=== PATIENT | male | born 1970 | race Caucasian/White ===

== ENCOUNTER 2024-07-01 16:44 | Observation (INO) ==
[2024-07-01 17:47] LABS: Basophils # (auto) 0.03 K/uL (0.00-0.20); Basophils % (auto) 0.3 %; Eosinophils # (auto) 0.05 K/uL (0.00-0.50); Eosinophils % (auto) 0.4 %; Hematocrit (blood only) 46.6 % (42.0-52.0); Hemoglobin 16.7 g/dl (14.0-18.0); Immature Granulocytes # (auto) 0.05 K/uL (0.01-0.20); Immature Granulocytes % (auto) 0.4 %; Lymphocytes # (auto) 1.42 K/uL (1.20-3.40); Lymphocytes % (auto) 12.2 %; Mean Corpuscular Hemoglobin 29.7 pg (25.0-34.0); Mean Corpuscular Hgb Conc 35.8 g/dL (32.0-36.0); Mean Corpuscular Volume 82.9 fL (80.0-100.0); Mean Platelet Volume 9.5 fL (9.4-12.4); Monocytes # (auto) 0.87 K/uL (0.11-0.59); Monocytes % (auto) 7.5 %; Neutrophils # (auto) 9.23 K/uL (1.40-6.50); Neutrophils % (auto) 79.2 %; Platelet Count 257 K/uL (130-400); RDW Coefficient of Variation 11.9 % (11.5-14.5); RDW Standard Deviation 36.1 fL (36.4-46.3); Red Blood Count 5.62 M/uL (4.70-6.10); White Blood Count 11.65 K/ul (4.8-10.8)
[2024-07-01 18:01] LABS: Appearance Urine Clear (Clear); Bilirubin Urine Negative (Negative); Blood Urine Negative (Negative); Color Urine Yellow; Glucose Urine UA Negative (Negative); Ketones Urine 1+ (Negative); Leukocyte Esterase Urine Negative (Negative); Nitrite Urine Negative (Negative); Protein Urine Negative (Negative); Specific Gravity Urine 1.028 (1.000-1.030); Urobilinogen Urine Negative (Negative); pH Urine 5.5 (4.5-7.5)
[2024-07-01 18:14] LABS: Albumin Globulin Ratio 1.4 (0.9-2); Albumin Level 4.7 gm/dl (3.4-5.0); BUN Creatinine Ratio 17.4 (10-20); Bilirubin,Total 0.7 mg/dl (0.2-1.0); Calcium 9.8 mg/dl (8.6-10.3); Creatinine Clr Calc Pharmacy 66.1 ml/min; Globulin 3.4 gm/dl (2.5-4.0); Potassium 4.2 mmol/L (3.5-5.1); Total Protein 8.1 gm/dl (6.0-8.3)
[2024-07-01] MEDS: SODIUM CHLORIDE 0.9% 1,000 ML IV ONE ×2 (18:22→18:54)
[2024-07-01] MEDS: ONDANSETRON INJ 2 MG/ML 2 ML VIAL IV STA (18:22)
[2024-07-01] MEDS: PANTOprazole 40 MG/10 ML SYR IV ONE (18:53)
[2024-07-01] MEDS: ACETAMINOPHEN 1,000 MG/100 ML VIAL IV STA (18:53)
--- NOTE | 2024-07-01 19:00 | Emergency Department Note ---
Impression & Plan Acute left flank pain, Calculus of distal left ureter, Hydronephrosis ED Provider Note HISTORY OF PRESENT ILLNESS: Patient is a 54-year-old male presenting with left upper quadrant and left flank pain. Patient reports that he has had a burning pain sensation in his left upper quadrant and left flank. He reports that when this pain comes on he gets diaphoretic and very nauseous and has episodes of vomiting. Reports that he has had multiple episodes of this pain over the last few months. He states that he had an episode in April 2024, and it lasted for about 2 weeks. He did not seek any medical treatment at that time. He states he had another episode earlier in the month that only lasted for a few days and then went away. He states that he takes 2 Advil, abysmal and a Gas-X and symptoms normally improved. He denies any diarrhea. Denies any history of abdominal surgeries. Denies any fevers. Denies noticing any rashes to the left flank area. He reports that pain is worse after he eats or drinks anything. He denies any history of peptic ulcer disease. He denies any notable fevers. Denies any dysuria or hematuria. Denies any chest pain or shortness of breath. ROS: as above PHYSICAL EXAM: Constitutional: Patient appears in no acute distress. HENT: Head: Normocephalic and atraumatic. Eyes: EOMI, PERRL Mouth/Throat: Mucous membranes moist. Neck: Trachea midline. Neck supple. Cardiovascular: RRR, No murmurs, rubs or gallops. Intact distal pulses. Pulmonary/Chest: No respiratory distress. Breath sounds clear and equal bilaterally. No wheezes or rales. Abdominal: Abdomen soft, no tenderness, rebound or guarding. No obvious rashes on left flank. Musculoskeletal: No edema, tenderness or deformity noted. Skin: Warm and dry. No rash, erythema, pallor or cyanosis Psychiatric: Appropriate mood and affect for situation. Neurological: Alert and keenly responsive. CN II-XII grossly intact, moving all extremities equally and fully. MDM: - Vitals signs showed hypertension. - History obtained via patient. History as above. - Chronic conditions affecting care: HTN - Differential diagnoses include, but are not limited to: peptic ulcer; ACS; UTI; pyelonephritis; ureteral stone; diverticulitis - Order placed for continuous cardiac monitoring. At this time, monitor showed rate of 72 bpm with normal sinus rhythm, per my interpretation. - External medical records reviewed. - Laboratory workup interpreted by myself showed leukocytosis (WBC 11.65); normal troponin; normal creatinine; stable electrolytes; normal lipase - Viral respiratory panel negative - Patient given 2L NS, 1g IV tylenol, 4 mg IV zofran and 40 mg IV protonix in ER. On reassessment, reports feeling slightly improved. - UA negative for infection, but noted ot have ketonuria. - CT abdomen/pelvis with IV contrast showed left hydronephrosis from a 6 x 12 mm calculus in the left ureteral pelvic junction. Normal appendix - Discussed patient's case with urologist, Dr. Herrera, at 20:30. Reports that ideally he would try to get the patient a shot of passage of the stone, but chance of passage is only about 20%. Recommends hydration and IV antibiotics, given patient's episodes of diaphoresis and possible subjective fevers. Reports if patient gets an 38.5 fever, would emergently stent. - Patient given 2g IV rocephin in ER. - Discussion was had with hospice case manager about patient's case and need for admission - Hospitalist, Dr. Gandhi, consulted for admission - [facility] for further evaluation and management. ASSESSMENT AND PLAN: Diagnosis: acute left flank pain; left ureteral stone; hydronephrosis Plan: admit Past Med/Surg History Problem List (Updated 07/01/24 @ 20:53 by Shelley Simpson MD) Hydronephrosis (Acute) Calculus of distal left ureter (Acute) Acute left flank pain (Acute) Forearm laceration (Acute) Work related injury (Acute) Social History Smoking Status: Never smoker Feels Safe at Home: Yes Allergies Allergies Allergy/AdvReac Type Severity Reaction Status Date / Time pollen extracts Allergy Intermediate CONGESTION Verified 07/01/24 20:16 Home Meds Home Medications Medication Instructions Recorded Confirmed lisinopril 20 mg tablet 20 mg PO DAILY #0 tabs 03/06/15 07/01/24 fluticasone furoate 100 1 inh inhalation DAILY PRN 07/01/24 07/01/24 mcg-vilanterol 25 mcg/dose Shortness Of Breath inhalation powder (Breo Ellipta) ibuprofen-diphenhydramine citrate 2 cap PO HS PRN Pain 07/01/24 07/01/24 200 mg-38 mg tablet (Advil PM) Results & Data (ED) Vital Signs Vital Signs - 24 hr 07/01/24 16:59 07/01/24 17:47 07/01/24 17:53 Temperature 36.2 C L Temperature Source Skin Pulse Rate 79 67 Pulse Rate [Right Finger] 69 Pulse Rhythm [Right Finger] Regular Pulse Strength [Right Finger] Normal Respiratory Rate 18 15 Respiratory Effort / Characteristics Non-Labored Respiratory Depth Normal Respiratory Pattern Regular Blood Pressure 149/106 H Blood Pressure [Right Arm] 163/100 H Blood Pressure Mean 120 Blood Pressure Mean [Right Arm] 121 Blood Pressure Position [Right Arm] Lying Pulse Oximetry 98 97 Oxygen Delivery Method Room Air Room Air Sepsis Recent Fever Within 48 Hours No Sepsis New/Unexplained Change in Mental Status No Sepsis Action Taken by Nursing No Action Required 07/01/24 19:19 07/01/24 21:06 Temperature Temperature Source Pulse Rate Pulse Rate [Right Finger] 72 64 Pulse Rhythm [Right Finger] Regular Regular Pulse Strength [Right Finger] Normal Normal Respiratory Rate 21 14 Respiratory Effort / Characteristics Non-Labored Non-Labored Respiratory Depth Normal Normal Respiratory Pattern Regular Regular Blood Pressure Blood Pressure [Right Arm] 154/94 H Blood Pressure Mean Blood Pressure Mean [Right Arm] 114 Blood Pressure Position [Right Arm] Lying Pulse Oximetry 97 Oxygen Delivery Method Room Air Sepsis Recent Fever Within 48 Hours Sepsis New/Unexplained Change in Mental Status Sepsis Action Taken by Nursing Laboratory Data 07/01/24 17:15 07/01/24 17:15 Lab Results 07/01/24 07/01/24 07/01/24 Range/Units 17:15 17:46 18:25 WBC 11.65 H (4.8-10.8) K/ul RBC 5.62 (4.70-6.10) M/uL Hgb 16.7 (14.0-18.0) g/dl Hct 46.6 (42.0-52.0) % MCV 82.9 (80.0-100.0) fL MCH 29.7 (25.0-34.0) pg MCHC 35.8 (32.0-36.0) g/dL RDW Std Deviation 36.1 L (36.4-46.3) fL RDW Coeff of Janice 11.9 (11.5-14.5) % Plt Count 257 (130-400) K/uL MPV 9.5 (9.4-12.4) fL Immature Gran % (Auto) 0.4 % Neut % (Auto) 79.2 % Lymph % (Auto) 12.2 % [place] % (Auto) 7.5 % Eos % (Auto) 0.4 % Baso % (Auto) 0.3 % Neut # (Auto) 9.23 H (1.40-6.50) K/uL Lymph # (Auto) 1.42 (1.20-3.40) K/uL [place] # (Auto) 0.87 H (0.11-0.59) K/uL Eos # (Auto) 0.05 (0.00-0.50) K/uL Baso # (Auto) 0.03 (0.00-0.20) K/uL Immature Gran # (Auto) 0.05 (0.01-0.20) K/uL Sodium 137 (136-145) mmol/L Potassium 4.2 (3.5-5.1) mmol/L Chloride 103 (98-107) mmol/L Carbon Dioxide 26 (21-32) mmol/L Anion Gap 8 (3-11) BUN 24 H (6-23) mg/dl Creatinine 1.38 (0.6-1.4) mg/dl Est Cr Clr Drug Dosing 66.1 ml/min eGFR 60.39 BUN/Creatinine Ratio 17.4 (10-20) Glucose 153 H (70-99(Fasting)) mg/dl Calcium 9.8 (8.6-10.3) mg/dl Total Bilirubin 0.7 (0.2-1.0) mg/dl AST 21 (13-39) U/L ALT 29 (7-52) U/L Alkaline Phosphatase 82 (34-104) U/L Troponin I High Sens (0-20) pg/ml Total Protein 8.1 (6.0-8.3) gm/dl Albumin 4.7 (3.4-5.0) gm/dl Globulin 3.4 (2.5-4.0) gm/dl Albumin/Globulin Ratio 1.4 (0.9-2) Lipase 20 (11-82) U/L Urine Color Yellow Urine Appearance Clear (Clear) Urine pH 5.5 (4.5-7.5) Ur Specific [place] 1.028 (1.000-1.030) Urine Protein Negative (Negative) Urine Glucose (UA) Negative (Negative) Urine Ketones 1+ H (Negative) Urine Blood Negative (Negative) Urine Nitrite Negative (Negative) Urine Bilirubin Negative (Negative) Urine Urobilinogen Negative (Negative) Ur Leukocyte Esterase Negative (Negative) Adenovirus (PCR) Not Detected (NotDetected) B. pertussis DNA (PCR) Not Detected (NotDetected) B.parapertussis DNA PCR Not Detected (NotDetected) C. pneumoniae DNA (PCR) Not Detected (NotDetected) Coronavirus OC43 (PCR) Not Detected (NotDetected) Coronavirus HKU1 (PCR) Not Detected (NotDetected) Coronavirus 229E (PCR) Not Detected (NotDetected) SARS-CoV-2 (PCR) Not Detected (NotDetected) Coronavirus NL63 (PCR) Not Detected (NotDetected) Human Metapneumovir PCR Not Detected (NotDetected) Influenza Type A (PCR) Not Detected (NotDetected) Influenza Type B (PCR) Not Detected (NotDetected) M. pneumoniae (PCR) Not Detected (NotDetected) Parainfluenza 1 (PCR) Not Detected (NotDetected) Parainfluenza 2 (PCR) Not Detected (NotDetected) Parainfluenza 3 (PCR) Not Detected (NotDetected) Parainfluenza 4 (PCR) Not Detected (NotDetected) RSV (PCR) Not Detected (NotDetected) Entero/Rhino (PCR) Not Detected (NotDetected) 07/01/24 Range/Units 19:16 WBC (4.8-10.8) K/ul RBC (4.70-6.10) M/uL Hgb (14.0-18.0) g/dl Hct (42.0-52.0) % MCV (80.0-100.0) fL MCH (25.0-34.0) pg MCHC (32.0-36.0) g/dL RDW Std Deviation (36.4-46.3) fL RDW Coeff of Janice (11.5-14.5) % Plt Count (130-400) K/uL MPV (9.4-12.4) fL Immature Gran % (Auto) % Neut % (Auto) % Lymph % (Auto) % [place] % (Auto) % Eos % (Auto) % Baso % (Auto) % Neut # (Auto) (1.40-6.50) K/uL Lymph # (Auto) (1.20-3.40) K/uL [place] # (Auto) (0.11-0.59) K/uL Eos # (Auto) (0.00-0.50) K/uL Baso # (Auto) (0.00-0.20) K/uL Immature Gran # (Auto) (0.01-0.20) K/uL Sodium (136-145) mmol/L Potassium (3.5-5.1) mmol/L Chloride (98-107) mmol/L Carbon Dioxide (21-32) mmol/L Anion Gap (3-11) BUN (6-23) mg/dl Creatinine (0.6-1.4) mg/dl Est Cr Clr Drug Dosing ml/min eGFR BUN/Creatinine Ratio (10-20) Glucose (70-99(Fasting)) mg/dl Calcium (8.6-10.3) mg/dl Total Bilirubin (0.2-1.0) mg/dl AST (13-39) U/L ALT (7-52) U/L Alkaline Phosphatase (34-104) U/L Troponin I High Sens 4.4 (0-20) pg/ml Total Protein (6.0-8.3) gm/dl Albumin (3.4-5.0) gm/dl Globulin (2.5-4.0) gm/dl Albumin/Globulin Ratio (0.9-2) Lipase (11-82) U/L Urine Color Urine Appearance (Clear) Urine pH (4.5-7.5) Ur Specific [place] (1.000-1.030) Urine Protein (Negative) Urine Glucose (UA) (Negative) Urine Ketones (Negative) Urine Blood (Negative) Urine Nitrite (Negative) Urine Bilirubin (Negative) Urine Urobilinogen (Negative) Ur Leukocyte Esterase (Negative) Adenovirus (PCR) (NotDetected) B. pertussis DNA (PCR) (NotDetected) B.parapertussis DNA PCR (NotDetected) C. pneumoniae DNA (PCR) (NotDetected) Coronavirus OC43 (PCR) (NotDetected) Coronavirus HKU1 (PCR) (NotDetected) Coronavirus 229E (PCR) (NotDetected) SARS-CoV-2 (PCR) (NotDetected) Coronavirus NL63 (PCR) (NotDetected) Human Metapneumovir PCR (NotDetected) Influenza Type A (PCR) (NotDetected) Influenza Type B (PCR) (NotDetected) M. pneumoniae (PCR) (NotDetected) Parainfluenza 1 (PCR) (NotDetected) Parainfluenza 2 (PCR) (NotDetected) Parainfluenza 3 (PCR) (NotDetected) Parainfluenza 4 (PCR) (NotDetected) RSV (PCR) (NotDetected) Entero/Rhino (PCR) (NotDetected) Administered Medications Discontinued Medications Sodium Chloride (Nss) 1,000 mls @ 999 mls/hr IV .Q1H1M ONE Stop: 07/01/24 19:04 Last Infusion: 07/01/24 20:19 Dose: Infused Documented By: Admin: 07/01/24 18:22 Dose: 999 mls/hr Documented By: NAM Sodium Chloride (Nss) 1,000 mls @ 999 mls/hr IV .Q1H1M ONE Stop: 07/01/24 19:45 Last Infusion: 07/01/24 20:43 Dose: Infused Documented By: Admin: 07/01/24 18:54 Dose: 999 mls/hr Documented By: NAM Pantoprazole Sodium (Protonix) 40 mg in 10 mls @ 5 mls/min IV NOW ONE Stop: 07/01/24 18:46 Last Admin: 07/01/24 18:53 Dose: 5 mls/min Documented By: NAM Acetaminophen (Ofirmev) 1,000 mg in 100 mls @ 400 mls/hr IV NOW STA Stop: 07/01/24 18:59 Last Infusion: 07/01/24 20:19 Dose: Infused Documented By: Admin: 07/01/24 18:53 Dose: 400 mls/hr Documented By: NAM Ceftriaxone Sodium (Rocephin) 2,000 mg in 50 mls @ 100 mls/hr IV NOW STA Stop: 07/01/24 21:01 Last Admin: 07/01/24 20:44 Dose: 100 mls/hr Documented By: NAM Ioversol (Optiray 320 100ml) 90 ml IV ONCE ONE Stop: 07/01/24 19:08 Last Admin: 07/01/24 19:08 Dose: 90 ml Documented By: SILVESTRE Ondansetron HCl (Ondansetron Inj 2 Mg/Ml 2 Ml Vial) 4 mg IV NOW STA Stop: 07/01/24 18:05 Last Admin: 07/01/24 18:22 Dose: 4 mg Documented By: NAM Imaging Data Radiologist's Impression: Abdomen/Pelvis CT 07/01/24 18:04 Exam(s): CT ABDOMEN + PELVIS With Contrast IV Amt: 90 ml optiray 320 EXAM: CT Abdomen and Pelvis With Intravenous Contrast CLINICAL HISTORY: Reason for exam: L flank pain. TECHNIQUE: Axial computed tomography images of the abdomen and pelvis with intravenous contrast. CTDI is 25 mGy and DLP is 1277 mGy-cm. Automated exposure control was utilized for the study. A dose lowering technique was utilized adhering to the principles of ALARA. CONTRAST: Patient received 90 ml optiray 320 of IV contrast COMPARISON: No relevant prior studies available. FINDINGS: Lung bases: Unremarkable. No mass. No consolidation. ABDOMEN: Liver: Unremarkable. No mass. Gallbladder and bile ducts: Previous cholecystectomy. No biliary duct dilation or choledocholithiasis. Pancreas: Unremarkable. No mass. No ductal dilation. Spleen: Unremarkable. No splenomegaly. Adrenals: Unremarkable. No mass. Kidneys and ureters: There is mild left hydronephrosis and a delayed left nephrogram due to a 6 x 12 mm calculus in the left ureteral pelvic junction. Nonobstructive 3 mm calyceal calculus in the lower pole left kidney. There is a 2.5 cm simple cyst in the upper pole the left kidney. No follow-up is required. Stomach and bowel: See below. PELVIS: Appendix: The appendix is normal. Bowel loops are nondilated. There is mild diverticulosis of the left colon without evidence of acute diverticulitis. No acute inflammatory changes are seen involving the bowel. Bladder: Unremarkable. No mass. Reproductive: Unremarkable as visualized. ABDOMEN and PELVIS: Intraperitoneal space: Unremarkable. No free air. No significant fluid collection. Bones/joints: Mild degenerative changes in the lumbar spine. No acute fracture or subluxation is seen. Soft tissues: Unremarkable. Vasculature: Unremarkable. No abdominal aortic aneurysm. Lymph nodes: Unremarkable. No enlarged lymph nodes. IMPRESSION: 1. There is mild left hydronephrosis and a delayed left nephrogram due to a 6 x 12 mm calculus in the left ureteral pelvic junction. 2. The appendix is normal. Bowel loops are nondilated. There is mild diverticulosis of the left colon without evidence of acute diverticulitis. No acute inflammatory changes are seen involving the bowel. Electronically signed by: Carlos Melo MD 07/01/24 20:10 PM Discharge Plan Visit Data Chief Complaint: Abdominal Pain Stated Complaint: LEFT SIDE PAIN, RIB, NAUSEA, DIZZY ED Provider: Shelley Simpson Discharge Problem: Acute left flank pain, Calculus of distal left ureter, Hydronephrosis Forms Stand Alone Forms: [facility] [employer] Prescriptions Prescriptions: No Action lisinopril 20 mg Tablet 20 mg PO DAILY Qty: 0 Advil PM 200-38 mg Tablet 2 cap PO HS PRN (Reason: Pain) Rx Instructions: repeats in 4 hours if needed fluticasone furoate-vilanterol [Breo Ellipta] 100-25 mcg/dose blister with device 1 inh INHALATION DAILY PRN (Reason: Shortness Of Breath) Referrals Referrals: PCP,NO [Primary Care Provider] -
[2024-07-01] MEDS: OPTIRAY 320 100ml IV ONE (19:08)
[2024-07-01 19:21] LABS: Adenovirus PCR Not Detected (NotDetected); Bordetella parapertussis PCR Not Detected (NotDetected); Bordetella pertussis PCR Not Detected (NotDetected); Chlamydia pneumoniae PCR Not Detected (NotDetected); Coronavirus 229E PCR Not Detected (NotDetected); Coronavirus CoV-2 (COVID19)PCR Not Detected (NotDetected); Coronavirus HKU1 PCR Not Detected (NotDetected); Coronavirus NL63 PCR Not Detected (NotDetected); Coronavirus OC43PCR Not Detected (NotDetected); Human Metapneumovirus PCR Not Detected (NotDetected); Influenza A PCR Not Detected (NotDetected); Influenza B PCR Not Detected (NotDetected); Mycoplasma pneumoniae PCR Not Detected (NotDetected); Parainfluenza Virus 1 PCR Not Detected (NotDetected); Parainfluenza Virus 2 PCR Not Detected (NotDetected); Parainfluenza Virus 3 PCR Not Detected (NotDetected); Parainfluenza Virus 4 PCR Not Detected (NotDetected); Respiratory Syncytial VirusPCR Not Detected (NotDetected); Rhinovirus/Enterovirus PCR Not Detected (NotDetected)
--- NOTE | 2024-07-01 20:11 | CT Scan Report ---
Exam(s): CT ABDOMEN + PELVIS With Contrast IV Amt: 90 ml optiray 320 EXAM: CT Abdomen and Pelvis With Intravenous Contrast CLINICAL HISTORY: Reason for exam: L flank pain. TECHNIQUE: Axial computed tomography images of the abdomen and pelvis with intravenous contrast. CTDI is 25 mGy and DLP is 1277 mGy-cm. Automated exposure control was utilized for the study. A dose lowering technique was utilized adhering to the principles of ALARA. CONTRAST: Patient received 90 ml optiray 320 of IV contrast COMPARISON: No relevant prior studies available. FINDINGS: Lung bases: Unremarkable. No mass. No consolidation. ABDOMEN: Liver: Unremarkable. No mass. Gallbladder and bile ducts: Previous cholecystectomy. No biliary duct dilation or choledocholithiasis. Pancreas: Unremarkable. No mass. No ductal dilation. Spleen: Unremarkable. No splenomegaly. Adrenals: Unremarkable. No mass. Kidneys and ureters: There is mild left hydronephrosis and a delayed left nephrogram due to a 6 x 12 mm calculus in the left ureteral pelvic junction. Nonobstructive 3 mm calyceal calculus in the lower pole left kidney. There is a 2.5 cm simple cyst in the upper pole the left kidney. No follow-up is required. Stomach and bowel: See below. PELVIS: Appendix: The appendix is normal. Bowel loops are nondilated. There is mild diverticulosis of the left colon without evidence of acute diverticulitis. No acute inflammatory changes are seen involving the bowel. Bladder: Unremarkable. No mass. Reproductive: Unremarkable as visualized. ABDOMEN and PELVIS: Intraperitoneal space: Unremarkable. No free air. No significant fluid collection. Bones/joints: Mild degenerative changes in the lumbar spine. No acute fracture or subluxation is seen. Soft tissues: Unremarkable. Vasculature: Unremarkable. No abdominal aortic aneurysm. Lymph nodes: Unremarkable. No enlarged lymph nodes. IMPRESSION: 1. There is mild left hydronephrosis and a delayed left nephrogram due to a 6 x 12 mm calculus in the left ureteral pelvic junction. 2. The appendix is normal. Bowel loops are nondilated. There is mild diverticulosis of the left colon without evidence of acute diverticulitis. No acute inflammatory changes are seen involving the bowel. Electronically signed by: Carlos Melo MD 07/01/24 20:10 PM
[2024-07-01] MEDS: cefTRIAXone SODIUM 2,000 MG/50 ML BAG IV STA (20:44)
[2024-07-01] MEDS ORDERED: MoRPHine SULFATE 4 MG/ML 1 ML CARP\\VIAL IV PRN (21:24)
[2024-07-01] MEDS: KETOROLAC TROMETHAMINE 15 MG/ML VIAL IV PRN (21:40)
[2024-07-01] MEDS: SODIUM CHLORIDE 0.9% 1,000 ML IV SCH (21:43)
--- NOTE | 2024-07-01 21:43 | History & Physical Report ---
Date of Service July 01, 2024 Assessment & Plan (1) Calculus of distal left ureter: Plan: Remote history of left ureteric stone status post stent requirement in 2018 Left flank pain on and off since April 6 x 12 mm of left ureteral pelvic stone with mild left hydronephrosis Started with intravenous ceftriaxone as prophylaxis of any infection and also may require stent placement Urologist has been consulted Adequate intravenous fluid will be given Advised to drink more fluids Pain medications mostly with intravenous Toradol and morphine Monitor labs (2) Hydronephrosis: Plan: As above (3) Acute left flank pain: Plan: Secondary to left ureteropelvic junction stone (4) Hypertension: Plan: Will continue lisinopril (5) Asthma: Plan: Controlled with current medications and will continue (6) History of parathyroidectomy: Plan: Parathyroidectomy was done years ago secondary to calcium kidney stone DVT prophylaxis Subcu heparin CODE STATUS Full History of Present Illness Chief Complaint: Severe left flank pain with nausea vomiting since this afternoon Primary Care Provider: NO PCP He is a 54-year-old male with significant past medical history of hypertension, controlled asthma and also remote history of left ureteric stone status post stent placement in 2018 apparently has been complaining of on and off pain in the left flank area since April of last year. His pain has been worse today associated with nausea and vomiting x 1 and also he felt feverish. No history of hematuria and no history of dysuria. He does not have flank pain but denies any pain in the left renal angle. He has some congestion but does not have any cough, wheezing or shortness of breath or any chest pain. CT scan revealed a 6 x 12 mm left ureterovesical stone with mild hydronephrosis on the left side. UA examination did not support any infection white count is minimally elevated likely secondary to stress and no evidence of pyelonephritis. The ER physician did talk to Dr. Bauer on-call urologist who will see the patient tomorrow who might need procedure down the line. Antibiotics are given as prophylactic. Allergies Allergy/AdvReac Type Severity Reaction Status Date / Time pollen extracts Allergy Intermediate CONGESTION Verified 07/01/24 20:16 Home Medications Medication Instructions Recorded Confirmed Type lisinopril 20 mg tablet 20 mg PO DAILY #0 tabs 03/06/15 07/01/24 History fluticasone furoate 100 1 inh inhalation DAILY PRN 07/01/24 07/01/24 History mcg-vilanterol 25 mcg/dose Shortness Of Breath inhalation powder (Breo Ellipta) ibuprofen-diphenhydramine citrate 2 cap PO HS PRN Pain 07/01/24 07/01/24 History 200 mg-38 mg tablet (Advil PM) Past Med/Surg History Problem List (Updated 07/01/24 @ 21:39 by Elsie Gandhi MD) History of parathyroidectomy Asthma Hypertension Hydronephrosis (Acute) Calculus of distal left ureter (Acute) Acute left flank pain (Acute) Forearm laceration (Acute) Work related injury (Acute) Social History Smoking Status: Never smoker Feels Safe at Home: Yes Review of Systems Review of Systems: All systems reviewed and are unremarkable except as noted below Physical Exam Physical Exam: Lying in bed without any acute distress Constitutional: well developed, well nourished, + ill appearing and + obese Eyes: PERRL, conjunctivae normal, anicteric sclerae ENMT: external ear and nose normal, oropharynx normal Neck: trachea midline, no thyromegaly Respiratory: no respiratory distress Auscultation: lungs clear to auscultation bilaterally Cardiovascular: Rate/Rhythm: regular rate and regular rhythm; not tachycardic Heart Sounds: normal S1 and normal S2; no murmur Extremities: no edema Gastrointestinal (Abdomen): Inspection/Auscultation: normal bowel sounds; abdomen not distended Percussion/Palpation: + abdomen tender (Minimally tender left flank and left mid quadrant) and abdomen soft No tenderness over left renal angle Musculoskeletal: No acute arthritis involving any of the joint Neurologic: normal touch/pain/proprioception and moves all extremities; no focal motor deficits Psychiatric: A+Ox3, euthymic affect Lymphatic: no cervical or axillary lymphadenopathy Results & Data Results & Data Vital Signs (Past 12 Hours) Vital Signs Temp Pulse Pulse Resp BP BP Pulse Ox 07/01/24 21:06 64 14 97 07/01/24 19:19 72 21 154/94 H 07/01/24 17:53 67 07/01/24 17:47 69 15 163/100 H 97 07/01/24 16:59 36.2 C L 79 18 149/106 H 98 O2 Del Method 07/01/24 21:06 Room Air 07/01/24 19:19 07/01/24 17:53 07/01/24 17:47 Room Air 07/01/24 16:59 Room Air Laboratory Results Short CBC 07/01/24 Range/Units 17:15 WBC 11.65 H (4.8-10.8) K/ul Hgb 16.7 (14.0-18.0) g/dl Hct 46.6 (42.0-52.0) % Plt Count 257 (130-400) K/uL BMP 07/01/24 17:15 Sodium 137 Potassium 4.2 Chloride 103 Carbon Dioxide 26 BUN 24 H Creatinine 1.38 Glucose 153 H Calcium 9.8 Liver Function 07/01/24 Range/Units 17:15 Total Bilirubin 0.7 (0.2-1.0) mg/dl AST 21 (13-39) U/L ALT 29 (7-52) U/L Alkaline Phosphatase 82 (34-104) U/L Albumin 4.7 (3.4-5.0) gm/dl Urine 07/01/24 Range/Units 17:46 Urine Color Yellow Urine Appearance Clear (Clear) Urine pH 5.5 (4.5-7.5) Ur Specific [place] 1.028 (1.000-1.030) Urine Protein Negative (Negative) Urine Glucose (UA) Negative (Negative) Medications Administered Current Inpatient Medications Heparin Sodium (Porcine) (Heparin Sod 5,000 Unit/0.5 Ml Vial) 5,000 units SQ Q12 SEAMUS Stop: 08/01/24 08:59 Sodium Chloride (Nss) 1,000 mls @ 125 mls/hr IV .Q8H SEAMUS Stop: 07/02/24 21:29 Ceftriaxone Sodium (Rocephin) 1,000 mg in 50 mls @ 100 mls/hr IV Q24H SEAMUS Stop: 07/03/24 21:29 Ketorolac Tromethamine (Ketorolac Tromethamine 15 Mg/Ml Vial) 15 mg IV Q6H PRN PRN Reason: Pain Stop: 07/06/24 21:23 Morphine Sulfate (Morphine Sulfate 4 Mg/Ml 1 Ml Carp\Vial) 4 mg IV Q4H PRN PRN Reason: Pain Stop: 07/15/24 21:23 Code Status & VTE Plan VTE Prophylaxis Plan VTE Prophylaxis will be ordered: Yes
--- NOTE | 2024-07-01 22:36 | XRay Report ---
Exam(s): XR CXR 2 VIEWS EXAM: XR Chest, 2 Views CLINICAL HISTORY: Reason for exam: Asthma. TECHNIQUE: Frontal and lateral views of the chest. COMPARISON: No relevant prior studies available. FINDINGS: Lungs: Unremarkable. No consolidation. Pleural space: Unremarkable. No pneumothorax. Heart: Unremarkable. No cardiomegaly. Mediastinum: Unremarkable. Normal mediastinal contour. Bones/joints: Mild degenerative changes throughout the thoracic spine. No acute fracture. Upper abdomen: Surgical clips in the right upper quadrant of the abdomen. No pneumoperitoneum under the diaphragm. IMPRESSION: No acute findings in the chest. Electronically signed by: Carlos Melo MD 07/01/24 22:34 PM
[2024-07-01] MEDS ORDERED: NON-FORMULARY MEDICATION (Ibuprofen-Diphenhydramine Cit [Advil Pm] 200-38 mg Tablet) PO PRN (23:12)
[2024-07-01] MEDS ORDERED: FLUTICASONE/VILANTEROL 100/25MCG 14 PUFFS/INHALER INH PRN (23:12)
[2024-07-01] MEDS ORDERED: IBUPROFEN 200 MG TAB PO PRN (23:35)
[2024-07-02] MEDS: ACETAMINOPHEN 500 MG TAB PO PRN (02:59)
[2024-07-02] MEDS: ONDANSETRON INJ 2 MG/ML 2 ML VIAL IV PRN (02:59)
[2024-07-02] MEDS: PROMETHAZINE 12.5 MG/50.5 ML BAG IV STA (04:06)
[2024-07-02 06:34] LABS: Basophils # (auto) 0.02 K/uL (0.00-0.20); Basophils % (auto) 0.2 %; Eosinophils # (auto) 0.04 K/uL (0.00-0.50); Eosinophils % (auto) 0.5 %; Hematocrit (blood only) 39.3 % (42.0-52.0); Hemoglobin 13.6 g/dl (14.0-18.0); Immature Granulocytes # (auto) 0.03 K/uL (0.01-0.20); Immature Granulocytes % (auto) 0.3 %; Lymphocytes # (auto) 1.17 K/uL (1.20-3.40); Lymphocytes % (auto) 13.4 %; Mean Corpuscular Hemoglobin 29.4 pg (25.0-34.0); Mean Corpuscular Hgb Conc 34.6 g/dL (32.0-36.0); Mean Corpuscular Volume 85.1 fL (80.0-100.0); Mean Platelet Volume 9.7 fL (9.4-12.4); Monocytes % (auto) 9.2 %; Neutrophils # (auto) 6.67 K/uL (1.40-6.50); Neutrophils % (auto) 76.4 %; Platelet Count 194 K/uL (130-400); RDW Coefficient of Variation 12.1 % (11.5-14.5); RDW Standard Deviation 37.2 fL (36.4-46.3); Red Blood Count 4.62 M/uL (4.70-6.10); White Blood Count 8.73 K/ul (4.8-10.8)
[2024-07-02 06:41] LABS: BUN Creatinine Ratio 16.1 (10-20); Calcium 8.3 mg/dl (8.6-10.3); Creatinine Clr Calc Pharmacy 61.4 ml/min
--- NOTE | 2024-07-02 08:37 | Urology Consultation ---
Date of Consultation July 02, 2024 Assessment & Plan (1) Hydronephrosis: (2) Calculus of proximal left ureter: (3) Acute left flank pain: 54-year-old male admitted for left renal colic secondary to a left proximal ureteral calculus. Patient afebrile, hemodynamically stable Labs reviewedcreatinine increased to 1.49, no leukocytosis, hemoglobin 13.6 Urinalysis on arrival was not suggestive of infection He has been treated with IV antibiotics Reviewed options for stone management including surgical intervention with left ureteral stent placement today or outpatient surgical options After discussion, he wishes to proceed with surgical intervention today He understands that stone treatment would take place at a later date Proceed to OR for cystoscopy and left ureteral stent placement with Dr. Cm Risks and benefits of procedure to be reviewed with patient by Dr. Cm Ureteral stents were discussed in detail Keep NPO for procedure Continue supportive care and medical management per hospital medicine service History of Present Illness Reason for Consultation: left ureteral stone Attending Physician: Chago Barrera MD History of Present Illness This is a 54-year-old male with past medical history of asthma, hypertension, nephrolithiasis and history of parathyroidectomy who presented to the emergency department on 07/01/2024 for evaluation of left flank pain, nausea and vomiting. On arrival to ED, he was afebrile, hypertensive. Lab work showed white count of 11.65, hemoglobin 16.7, creatinine 1.38. Urinalysis showed 1+ ketones, otherwise unremarkable. Workup in ED included CT abdomen pelvis which showed mild left hydronephrosis and delayed left nephrogram secondary to an obstructing 6 x 12 mm calculus in the left UPJ. ED course: IV fluids, acetaminophen, ceftriaxone and ondansetron. He was admitted to the hospital medicine service for acute left flank pain secondary to left ureteral calculus. Urology is consulted for left ureteral stone. Patient seen and examined at bedside. He is awake and resting in bed. Currently comfortable. Denies nausea or vomiting. No fever or chills. He is voiding spontaneously, no dysuria or hematuria. He reports having renal colic episodes in April and May, but he did not seek medical care. He has history of nephrolithiasis. Prior history of ureteroscopy, laser lithotripsy and stent placement. Currently NPO. Allergies Allergy/AdvReac Type Severity Reaction Status Date / Time pollen extracts Allergy Intermediate CONGESTION Verified 07/01/24 20:16 Home Medications Medication Instructions Recorded Confirmed Type lisinopril 20 mg tablet 20 mg PO DAILY #0 tabs 03/06/15 07/01/24 History fluticasone furoate 100 1 inh inhalation DAILY PRN 07/01/24 07/01/24 History mcg-vilanterol 25 mcg/dose Shortness Of Breath inhalation powder (Breo Ellipta) ibuprofen-diphenhydramine citrate 2 cap PO HS PRN Pain 07/01/24 07/01/24 History 200 mg-38 mg tablet (Advil PM) Patient History Social History Smoking Status: Never smoker Hx Alcohol Use: Yes Alcohol type: beer Hx Substance Use: No Preferred Language: Luxembourgish Communication Ability: Effective Composing Room Machinist Required: No Beliefs That Will Affect Care: None Current Living Situation: Spouse Feels Safe at Home: Yes Safety Concerns: Feels Safe At This Time Assistive Devices: Glasses Review of Systems Review of Systems: All systems reviewed & are unremarkable except as noted in HPI & below Physical Exam Constitutional: well developed and well nourished; no acute distress Respiratory: normal respiratory effort; no respiratory distress and no labored breathing Gastrointestinal (Abdomen): Inspection/Auscultation: abdomen normal to inspection Musculoskeletal: Head/Neck/Chest: normocephalic Neurologic: moves all extremities and awake Psychiatric: Orientation: alert and oriented x 3 Results & Data Vital Signs (Past 12 Hours) Vital Signs Temp Pulse Pulse Resp BP BP Pulse Ox 07/02/24 08:18 36.7 C 66 18 147/89 H 98 07/02/24 07:29 57 L 07/02/24 04:59 62 07/02/24 03:50 36.3 C L 68 18 157/99 H 96 07/01/24 23:41 64 07/01/24 23:00 68 18 180/80 H 97 07/01/24 21:06 64 14 97 O2 Del Method 07/02/24 08:18 Room Air 07/02/24 07:29 07/02/24 04:59 07/02/24 03:50 Room Air 07/01/24 23:41 07/01/24 23:00 Room Air 07/01/24 21:06 Room Air PG Care Time/CCT Total # of Minutes Spent Total Time Spent with Patient: Total time spent is greater than 50% in coordination of care (as documented) at patient's floor/unit and/or counseling patient: Coding Level of Care Code 98854 IN/OBS CONSULT LVL 4,60M Diagnoses Hydronephrosis N13.30 Calculus of proximal left ureter N20.1 Acute left flank pain R10.9
[2024-07-02] MEDS: lisinopril 20 MG TAB PO SCH (09:22)
[2024-07-02] MEDS: HEPARIN SOD 5,000 UNIT/0.5 ML VIAL SQ SCH (11:28)
[2024-07-02] MEDS ORDERED: ONDANSETRON INJ 2 MG/ML 2 ML VIAL ONE (12:05)
[2024-07-02] MEDS ORDERED: PROPOFOL IV EMULSION 10 MG/ML 20 ML VIAL IV ONE (12:05)
[2024-07-02] MEDS ORDERED: LIDOCAINE 2% 2 ML VIAL/AMP(20MG/ML) INFIL ONE (12:05)
[2024-07-02] MEDS ORDERED: DEXAMETHASONE SOD INJ 4 MG/ML VIAL ONE (12:05)
[2024-07-02] MEDS ORDERED: MIDAZOLAM HCL 1 MG/ML 2ML VIAL ONE (12:06)
[2024-07-02] MEDS ORDERED: GLYCOPYRROLATE 0.2 MG/ML VIAL ONE (12:06)
[2024-07-02] MEDS ORDERED: fentaNYL citrate PF 100 MCG/2 ML VIAL ONE (12:06)
[2024-07-02] MEDS ORDERED: hydrALAZINE HCL 20 MG/ML VIAL IV PRN (13:22)
--- NOTE | 2024-07-02 13:23 | Hospitalist Progress Note ---
Date of Service July 02, 2024 Assessment & Plan (1) Calculus of distal left ureter: Plan: Remote history of left ureteric stone status post stent requirement in 2018 Left flank pain on and off since April this time Admitting CTAP w/ 6 x 12 mm of left ureteral pelvic stone with mild left hydronephrosis Started with intravenous ceftriaxone as prophylaxis of any infection and also may require stent placement Urologist has been consulted, likely stent today. Resume diet after stent. manage pain, encourage adequate hydration. Elevated creatinine: Admitting creatinine of 1.38, creatinine up trended to 1.49. Stop ibuprofen. Likely postrenal secondary to obstruction. Continue with IV fluid. Labs in AM. Avoid nephrotoxic including home lisinopril and ibuprofen. (2) Hydronephrosis: Plan: As above (3) Acute left flank pain: Plan: Secondary to left ureteropelvic junction stone, better w/ pain mx now. (4) Hypertension: Plan: Will continue lisinopril (5) Asthma: Plan: Controlled with current medications and will continue (6) History of parathyroidectomy: Plan: Parathyroidectomy was done years ago secondary to calcium kidney stone DVT prophylaxis Subcu heparin CODE STATUS Full Admission and Anticipated Discharge Date Admission Date: July 01, 2024 Subjective Patient was seen and examined at bedside. Patient was lying in bed, on room air, NAD, resting comfortably. Patient reports improvement in his left flank pain. Patient denies any pain or burning while passing urine, reports feeling warm during episodes of pain. Patient reports eating okay and moving bowels okay. Patient is n.p.o. today until urological procedure. Physical Exam Physical Exam: GENERAL: Alert and oriented x3. NAD, on RA. HEENT: No pallor, no icterus. Pupils equal, round and reactive to light. Oral mucosa moist. NECK: No JVD, no neck masses. HEART: S1 and S2 heard. Regular rate and rhythm. No murmur, no gallop. RESPIRATORY SYSTEM: Normal AP diameter. No accessory muscle use. No wheezing, no crackles. ABDOMEN: Soft, bowel sounds present, nontender, no distention. CENTRAL NERVOUS SYSTEM: No facial droop. Speech is clear. Obeys simple commands. Moves extremities. EXTREMITIES: No edema, no erythema seen. No CVA angle tenderness. Results & Data Results & Data Vital Signs (Past 12 Hours) Vital Signs Temp Pulse Pulse Resp BP Pulse Ox O2 Del Method 07/02/24 11:31 36.3 C L 73 18 156/85 H 98 Room Air 07/02/24 08:18 36.7 C 66 18 147/89 H 98 Room Air 07/02/24 07:29 57 L 07/02/24 04:59 62 07/02/24 03:50 36.3 C L 68 18 157/99 H 96 Room Air
[2024-07-02] MEDS ORDERED: ATROPINE SULFATE 0.1 MG/ML 10ML SYR IV PRN (14:12)
[2024-07-02] MEDS ORDERED: ePHEDrine sulfate 50 MG/ML AMP IV PRN (14:12)
[2024-07-02] MEDS ORDERED: fentaNYL citrate PF 100 MCG/2 ML VIAL IV PRN (14:12)
[2024-07-02] MEDS ORDERED: ONDANSETRON INJ 2 MG/ML 2 ML VIAL IV PRN (14:12)
--- NOTE | 2024-07-02 14:12 | Anesthesiology Consultation ---
Date of Service July 02, 2024 Assessment & Plan Chart Review Chart Review: Acceptable Risk for Surgery and Patient NOT seen in Pre Admission Testing Consults Requested none ASA ASA2 Proposed Anesthesia Anesthesia Type: MAC Risk / Benefits Reviewed With: PT / POA / Parent / Guardian, Accepts Plan and Informed Consent Obtained History Surgery Operation Date: 07/02/24 10:30 Proposed Procedures p Cystoscopy Left Ureteral Stent Placement - Sae Cm MD Height/Weight Height: 5 ft 9 in Weight: 87.6 kg Allergies Allergy/AdvReac Type Severity Reaction Status Date / Time pollen extracts Allergy Intermediate CONGESTION Verified 07/01/24 20:16 Medications Home Medications Medication Instructions Recorded Confirmed Last Taken lisinopril 20 mg tablet 20 mg PO DAILY #0 tabs 03/06/15 07/01/24 07/01/24 03:00 fluticasone furoate 100 1 inh inhalation DAILY PRN 07/01/24 07/01/24 Unknown mcg-vilanterol 25 mcg/dose Shortness Of Breath inhalation powder (Breo Ellipta) ibuprofen-diphenhydramine citrate 2 cap PO HS PRN Pain 07/01/24 07/01/24 06/30/24 200 mg-38 mg tablet (Advil PM) Active Medications Generic Name Dose Route Start Last Admin Trade Name Freq PRN Reason Stop Dose Admin Acetaminophen 1,000 mg 07/01/24 23:12 07/02/24 02:59 Acetaminophen 500 Mg Tab PO 07/31/24 23:11 1,000 mg Q8H PRN Administration Pain or Fever Heparin Sodium (Porcine) 5,000 units 07/02/24 09:00 07/02/24 11:28 Heparin Sod 5,000 Unit/0.5 Ml Vial SQ 08/01/24 08:59 Not Given Q12 SEAMUS Sodium Chloride 1,000 mls @ 125 mls/hr 07/01/24 21:30 07/02/24 12:17 Nss IV 07/02/24 21:29 125 mls/hr .Q8H SEAMUS Administration Ketorolac Tromethamine 15 mg 07/01/24 21:24 07/01/24 21:40 Ketorolac Tromethamine 15 Mg/Ml Vial IV 07/06/24 21:23 15 mg Q6H PRN Administration Pain Lisinopril 20 mg 07/02/24 09:00 07/02/24 09:22 Lisinopril 20 Mg Tab PO 08/01/24 08:59 20 mg DAILY SEAMUS Administration Ondansetron HCl 4 mg 07/01/24 23:12 07/02/24 02:59 Ondansetron Inj 2 Mg/Ml 2 Ml Vial IV 07/31/24 23:11 4 mg Q6H PRN Administration Nausea And Vomiting NPO Date Last Intake of Fluids: 07/01/24 Time Last Intake of Fluids: 03:00 Last Intake of Fluids Comment: sip of water 0922 w/med Date Last Intake of Solids: 07/01/24 Time Last Intake of Solids: 03:00 Exercise / Class Metabolic Activity II 4-5 Yardwork/Stairs/Walk up hill Past Anesthesia History No Hx of Anesthesia Complications and No Family Hx of Anesthesia Complications History of PONV No Hx of PONV and No Hx of Motion Sickness Social History Smoking Status: Never smoker Hx Alcohol Use: Yes Alcohol type: beer alcohol intake frequency: holidays/special occasions only Hx Substance Use: No Physical Exam Vital Signs Last Vital Signs Temp 36.9 C 07/02/24 13:46 Pulse 70 07/02/24 13:55 Resp 18 07/02/24 13:55 BP 167/107 H 07/02/24 13:55 Pulse Ox 98 07/02/24 13:55 O2 Del Method Room Air 07/02/24 13:55 ENMT Mouth: no dentition abnormality Thyromental Distance: > or= 3.5 Finger Breadths Mallampati Class: II Neck normal visual inspection Respiratory normal respiratory effort Auscultation: lungs clear to auscultation bilaterally Cardiovascular Rate/Rhythm: regular rate and regular rhythm Psychiatric Orientation: alert Testing Laboratory Results 07/02/24 05:26 07/02/24 05:26 Urine Color Yellow 07/01/24 17:46 Urine Appearance Clear (Clear) 07/01/24 17:46 Urine pH 5.5 (4.5-7.5) 07/01/24 17:46 Ur Specific [place] 1.028 (1.000-1.030) 07/01/24 17:46 Urine Protein Negative (Negative) 07/01/24 17:46 Urine Glucose (UA) Negative (Negative) 07/01/24 17:46 Urine Ketones 1+ (Negative) H 07/01/24 17:46 Urine Nitrite Negative (Negative) 07/01/24 17:46 Ur Leukocyte Esterase Negative (Negative) 07/01/24 17:46
--- NOTE | 2024-07-02 14:31 | History & Physical Bridge Note ---
Date of Service July 02, 2024 History & Physical Bridge Note I have examined the patient, reviewed the History & Physical and in the interval since the performance of the History & Physical I have noted the following changes of clinical significance: no changes noted
[2024-07-02] MEDS: DIATRIZOATE MEGLUMINE 30% 100ML VIAL INSTIL ONE (14:48)
--- NOTE | 2024-07-02 14:54 | Operative Report ---
PG Post Operative Report Pre & Post Diagnosis Operation Date: 07/02/24 10:30 Pre-Op Diagnosis: Left ureteric stone Post-Op Diagnosis: Left ureteric stone I identified the patient and participated in the time-out.: Yes Procedure Operation Date: 07/02/24 10:30 Actual Procedures p Cystoscopy, Left Ureteral Stent Placement(Not Applicable) - Sae Cm MD Surgeon Sae Cm MD Imcu Specialist none Estimated Blood Loss 0 Findings Consistent with Post-Op Diagnosis Specimens none Description of Procedure The patient was identified in the preoperative holding area, appropriate informed consents were reviewed and completed and the patient was transferred to the operative suite. Upon arrival, appropriate antibiotics and anesthesia were administered and the patient was placed in dorsal lithotomy position and prepped and draped in sterile fashion. To be in the case I passed a 21 Israeli cystoscope with 30 degree lens and visual cutter grinder operator peer inspection revealed a healthy-appearing urethra and prostate. His bladder was unremarkable and ureteral orifices were in orthotopic position. I turned attention the left UO and cannulated with a 5 Israeli open-ended catheter. I performed retrograde pyelogram which revealed a normal caliber distal ureter without stricturing or other abnormalities. Contrast progressed into the kidney but he does have blunted calyces consistent with obstruction at the level of the UPJ. I then placed a wire through the 5 Israeli open-ended catheter and positioned in the upper pole. I proceeded to place a 7 Israeli by 26 cm double-J stent test using the Coloplast soft model. There was good curl in the kidney as well as the bladder. I decompressed the bladder and concluded the case. Was reversed of anesthesia and taken to the recovery room in stable condition. Will plan for outpatient follow-up to schedule definitive surgery to treat his stone. I attest to the content of the Intraoperative Record and any orders documented therein. Any exceptions are noted below.
--- NOTE | 2024-07-02 15:15 | Anesthesiology Progress Note ---
Date of Service July 02, 2024 Anesthesia Post Procedure Vital Signs Vital Signs: Temp Pulse Pulse Pulse Resp BP BP 07/02/24 15:05 70 14 101/67 07/02/24 15:00 101/61 07/02/24 14:55 36.6 C 76 13 94/65 L 07/02/24 14:50 65 07/02/24 13:55 70 18 167/107 H 07/02/24 13:46 36.9 C 68 18 183/101 H 07/02/24 11:31 36.3 C L 73 18 156/85 H 07/02/24 08:18 36.7 C 66 18 147/89 H 07/02/24 07:29 57 L 07/02/24 04:59 62 07/02/24 03:50 36.3 C L 68 18 157/99 H 07/01/24 23:41 64 07/01/24 23:00 68 18 07/01/24 21:06 64 14 07/01/24 19:19 72 21 07/01/24 17:53 67 07/01/24 17:47 69 15 07/01/24 16:59 36.2 C L 79 18 149/106 H BP Pulse Ox O2 Del Method O2 Flow Rate 07/02/24 15:05 99 Oxymask 7 07/02/24 15:00 07/02/24 14:55 98 Oxymask 7 07/02/24 14:50 07/02/24 13:55 98 Room Air 07/02/24 13:46 98 Room Air 07/02/24 11:31 98 Room Air 07/02/24 08:18 98 Room Air 07/02/24 07:29 07/02/24 04:59 07/02/24 03:50 96 Room Air 07/01/24 23:41 07/01/24 23:00 180/80 H 97 Room Air 07/01/24 21:06 97 Room Air 07/01/24 19:19 154/94 H 07/01/24 17:53 07/01/24 17:47 163/100 H 97 Room Air 07/01/24 16:59 98 Room Air Pain Intensity Abdomen: Pain Intensity: 8 Transfer of Care Handoff Completed per policy Notes Mental Status: alert / awake / arousable Patient Amnestic to Procedure: Yes Nausea / Vomiting: adequately controlled Pain: adequately controlled Airway Patency, RR, SpO2: stable & adequate BP & HR: stable & adequate Hydration State: stable & adequate Anesthetic Complications: no major complications apparent
--- NOTE | 2024-07-02 16:37 | Fluoroscopy Report ---
[facility] CLINICAL HISTORY: CYSTO COMPARISON STUDY: CT of the abdomen and pelvis July 01, 2024. FLUOROSCOPY TIME: 17 seconds. Ka,r: 5.52 mGy FLUOROSCOPIC IMAGES: 1 FINDINGS: Fluoroscopy was provided during left retrograde pyelogram and left ureteral stent insertion . IMPRESSION: Fluoroscopy provided during left retrograde pyelogram and left ureteral stent insertion. ACT 112: Negative or not required by law. Electronically signed by: Austin Rogers M.D. 07/02/2024 4:35 PM
[2024-07-02] MEDS: cefTRIAXone SODIUM 2,000 MG/50 ML BAG IV SCH (20:26)
[2024-07-02] MEDS: diphenhydrAMINE Capsule 25 MG CAP PO PRN (21:58)
[2024-07-02] MEDS: MELATONIN 3 MG TAB PO SCH (21:58)
[2024-07-03 06:40] LABS: Hematocrit (blood only) 37.9 % (42.0-52.0); Hemoglobin 13.3 g/dl (14.0-18.0); Mean Corpuscular Hemoglobin 29.7 pg (25.0-34.0); Mean Corpuscular Hgb Conc 35.1 g/dL (32.0-36.0); Mean Corpuscular Volume 84.6 fL (80.0-100.0); Mean Platelet Volume 9.8 fL (9.4-12.4); Platelet Count 226 K/uL (130-400); RDW Coefficient of Variation 11.8 % (11.5-14.5); RDW Standard Deviation 35.7 fL (36.4-46.3); Red Blood Count 4.48 M/uL (4.70-6.10); White Blood Count 7.55 K/ul (4.8-10.8)
[2024-07-03 07:05] LABS: BUN Creatinine Ratio 16.8 (10-20); Calcium 8.3 mg/dl (8.6-10.3); Creatinine Clr Calc Pharmacy 81.5 ml/min; Magnesium 1.8 mg/dl (1.7-2.4); Phosphorus 3.2 mg/dl (2.5-4.9); Potassium 3.9 mmol/L (3.5-5.1)
[2024-07-03 07:52] VITALS: RESP 16; TEMP 97.5; O2SAT 97
--- NOTE | 2024-07-03 08:42 | Urology Progress Note ---
Date of Service July 03, 2024 Assessment & Plan (1) Calculus of proximal left ureter: Plan: - Pt POD#1 s/p cystoscopy and left ureteral stent placement - Doing well, progressing as expected - Afebrile, stable vitals - Lab work reviewed - creatinine 1.13, WBC 7.55 - Tolerating left ureteral stent with minimal bother - Okay to d/c from perspective when medically stable - Recommend d/c with course of Tamsulosin, prn Pyridium and prn pain medication for stent management - Expected clinical course reviewed, all questions answered - Will arrange outpatient follow-up with our service to set up definitive stone management Admission and Anticipated Discharge Date Admission Date: July 01, 2024 Subjective Patient seen and examined at bedside. He is awake and resting in bed. No acute issues overnight. Tolerating left ureteral stent. Reports some flank discomfort with voids, tolerable. No hematuria. No fever or chills. Review of Systems Constitutional: as per Subjective / HPI Genitourinary: + as per Subjective / HPI Physical Exam Constitutional: well developed and well nourished; no acute distress Respiratory: normal respiratory effort; no respiratory distress and no labored breathing Gastrointestinal (Abdomen): Inspection/Auscultation: abdomen normal to inspection Musculoskeletal: Head/Neck/Chest: normocephalic Neurologic: moves all extremities and awake Psychiatric: Orientation: alert and oriented x 3 Results & Data Vital Signs (Past 12 Hours) Vital Signs Temp Pulse Pulse Resp BP Pulse Ox O2 Del Method 07/03/24 08:01 65 07/03/24 07:51 36.4 C L 62 16 135/77 97 Room Air 07/03/24 03:11 36.5 C 64 18 128/77 95 Room Air 07/02/24 22:43 36.6 C 76 18 126/77 95 Room Air 07/02/24 21:48 69 PG Care Time/CCT Total # of Minutes Spent Total Time Spent with Patient: Total time spent is greater than 50% in coordination of care (as documented) at patient's floor/unit and/or counseling patient: Coding Level of Care Code 34499 SUB INP/OBS CARE 07/13MIN Diagnoses Calculus of proximal left ureter N20.1
--- NOTE | 2024-07-03 09:43 | Electrocardiogram Report ---
Test Reason : Blood Pressure : */* mmHG Vent. Rate : 65 BPM Atrial Rate : 65 BPM P-R Int : 182 ms QRS Dur : 72 ms QT Int : 402 ms P-R-T Axes : -13 -5 123 degrees QTcB Int : 418 ms Normal sinus rhythm Nonspecific T wave abnormality Abnormal ECG No previous ECGs available Confirmed by Ken Cruz ([id number]) on 07/03/2024 9:42:58 AM Referred By: REFERRED SELF Confirmed By: Ken Cruz
[2024-07-03 09:50] VITALS: BP 180/80; PULSE 62
--- NOTE | 2024-07-03 13:29 | Discharge Summary ---
Date of Service July 03, 2024 Admission HPI Per Admitting Provider He is a 54-year-old male with significant past medical history of hypertension, controlled asthma and also remote history of left ureteric stone status post stent placement in 2018 apparently has been complaining of on and off pain in the left flank area since April of last year. His pain has been worse today associated with nausea and vomiting x 1 and also he felt feverish. No history of hematuria and no history of dysuria. He does not have flank pain but denies any pain in the left renal angle. He has some congestion but does not have any cough, wheezing or shortness of breath or any chest pain. CT scan revealed a 6 x 12 mm left ureterovesical stone with mild hydronephrosis on the left side. UA examination did not support any infection white count is minimally elevated likely secondary to stress and no evidence of pyelonephritis. The ER physician did talk to Dr. Bauer on-call urologist who will see the patient tomorrow who might need procedure down the line. Antibiotics are given as prophylactic. Admission Exam Per Admitting Provider Physical Exam: Lying in bed without any acute distress Constitutional: well developed, well nourished, + ill appearing and + obese Eyes: PERRL, conjunctivae normal, anicteric sclerae ENMT: external ear and nose normal, oropharynx normal Neck: trachea midline, no thyromegaly Respiratory: no respiratory distress Auscultation: lungs clear to auscultation bilaterally Cardiovascular: Rate/Rhythm: regular rate and regular rhythm; not tachycardic Heart Sounds: normal S1 and normal S2; no murmur Extremities: no edema Gastrointestinal (Abdomen): Inspection/Auscultation: normal bowel sounds; abdomen not distended Percussion/Palpation: + abdomen tender (Minimally tender left flank and left mid quadrant) and abdomen soft No tenderness over left renal angle Musculoskeletal: No acute arthritis involving any of the joint Neurologic: normal touch/pain/proprioception and moves all extremities; no focal motor deficits Psychiatric: A+Ox3, euthymic affect Lymphatic: no cervical or axillary lymphadenopathy Principal Diagnosis Calculus of distal left ureter s/p Left Ureteral Stent Placement Discharge Exam GENERAL: Alert and oriented x3. NAD, on RA. HEENT: No pallor, no icterus. Pupils equal, round and reactive to light. Oral mucosa moist. NECK: No JVD, no neck masses. HEART: S1 and S2 heard. Regular rate and rhythm. No murmur, no gallop. RESPIRATORY SYSTEM: Normal AP diameter. No accessory muscle use. No wheezing, no crackles. ABDOMEN: Soft, bowel sounds present, nontender, no distention. CENTRAL NERVOUS SYSTEM: No facial droop. Speech is clear. Obeys simple commands. Moves extremities. EXTREMITIES: No edema, no erythema seen. No CVA angle tenderness. Discharge Data Allergies Allergy/AdvReac Type Severity Reaction Status Date / Time pollen extracts Allergy Intermediate CONGESTION Verified 07/01/24 20:16 Consultations 07/01/24 20:46 Consult Urology Routine 07/01/24 21:09 ED Decision to Admit Stat 07/01/24 21:43 Consult Urology Routine Procedures Performed Operation Date: 07/02/24 10:30 Actual Procedures p Cystoscopy, Left Ureteral Stent Placement(Not Applicable) - Sae Cm MD Ordered Studies 07/01/24 18:04 CT Abd and Pelvis [CT abd pelvis IV con only] Stat 07/02/24 FL KUB Routine Hospital Course (1) Calculus of distal left ureter: (2) Hydronephrosis: (3) Acute left flank pain: (4) Hypertension: (5) Asthma: (6) History of parathyroidectomy: Plan Remote history of left ureteric stone status post stent requirement in 2017 Patient presented with Left flank pain on and off since April this time Admitting CTAP w/ 6 x 12 mm of left ureteral pelvic stone with mild left hydr onephrosis Patient underwent cystoscopy with left ureteral stent placement on 07/02/2024. Pain improved significantly. Patient was discharged with instructions to follow-up with PCP and urology after discharge. Patient creatinine was slightly elevated on admission; down trended with IV hydration during the hospitalization. Please note the above document was generated using voice recognition software. It may contain grammatical, syntax or spelling errors. Any formal questions or concerns about the content, text or information contained within the body of this dictation should be directly addressed to the provider for clarification Total Time Total Time Spent Total Time Spent (In Minutes): 45 Total Time Includes: Examination of the Patient, Discharge Planning, Medication Reconciliation, Communication With Other Providers and Other Discharge Plan Discharge Items Patient Disposition: Home - Self-Care Reason For Visit: LEFT URETERIC STONE,MILD HYDRONEPHROSIS Discharge Diagnosis: Left-sided ureteral stone status post stent placement Activity: Resume your previous activity Non-emergency contact: Primary Care Provider Call non-emergency contact if: you have any medication questions and your symptoms worsen Follow-up/Referrals: Meredith Clark CRNP [Nurse Practitioner] - 07/05/24 2:00 pm Edil Noonan PA-C [Primary Care Provider] - 07/10/24 10:30 am Diet: Regular Addtl Attending Provider Instructions: You were admitted to the hospital with stone in left ureter. You were evaluated by urology during the hospitalization and had a stent placed. You will receive a call for an appointment with urology office for definitive management of the stone. You are prescribed tamsulosin to be taken once a day. You are also prescribed Pyridium to be taken as needed for pain every 8 hours for next 2 days. Your urine can change into red-orange color while you are taking Pyridium. You are prescribed oxycodone to be taken for severe pain. Please follow-up with your primary care doctor next week. Addtl [employer] Provider Instructions: Please take all medications as prescribed and keep all follow-ups as scheduled. Please call our office at [phone] with any questions, concerns or need to reschedule appointments for any reason. We are happy to assist you. While you have a ureteral stent in place: Some discomfort is normal. Certain movements may trigger pain or a feeling that you need to urinate. You may also feel mild soreness or pressure before or during urination. These symptoms should go away a few days after the stent is removed. Your urine may be slightly pink or red. This is due to bleeding caused by minor irritation from the stent. This may happen on and off while you have the stent, it is not harmful and is to be expected. Medication to help minimize discomfort or bladder spasms, or to prevent infection may be prescribed. Take this as directed. Drink plenty of fluids to help flush out your urinary tract. If you go home with a catheter, wash with soapy water and a fresh washcloth twice daily. We recommend mild bar soap such as Dial or Dove. When to call [facility] at [phone]: Your urine contains heavy blood clots You are constantly leaking urine Fever of 101F or higher, chills, nausea, or vomiting Your pain is not relieved with medication The end of the stent comes out of your urethra Pending Studies at Discharge: No Stand-Alone Forms: My [facility], Work/School Release, Smoking Cessation Medications and DC Order Prescriptions: New tamsulosin 0.4 mg capsule 0.4 mg PO DAILY 30 Days Qty: 30 0RF phenazopyridine [Pyridium] 100 mg tablet 100 mg PO Q8H PRN (Reason: pain) Qty: 6 0RF oxycodone 5 mg tablet 5 mg PO DAILY PRN (Reason: pain) Qty: 14 0RF Continued lisinopril 20 mg Tablet 20 mg PO DAILY Qty: 0 Advil PM 200-38 mg Tablet 2 cap PO HS PRN (Reason: Pain) Rx Instructions: repeats in 4 hours if needed fluticasone furoate-vilanterol [Breo Ellipta] 100-25 mcg/dose blister with device 1 inh INHALATION DAILY PRN (Reason: Shortness Of Breath) Discharge Orders: Discharge Order (Routine); Ordered 07/03/24 Ordered By: Khoi Cheng Admission Data Admit Date/Time: 07/01/24 21:24 Attending Provider: Khoi Cheng Admit Provider: Elsie Gandhi Primary Care Provider: Edil Noonan Other Providers: Rene Bauer; Elsie Gandhi Other Interventions: Discharge Summary Assessment (RN) Last Done: 07/03/24 09:50
== END 2024-07-03 11:01 | disposition home or self-care (01) | DRG 661 ==
LOC: ED 16:44 → EDINP 21:24 → INTOOBSV 21:24 → SUATTDRO 21:24 → 2N 23:12